=== PATIENT | male | born 1945 | race Caucasian/White ===

== ENCOUNTER 2022-07-12 06:51 | Day surgery (SDC) | payer MEDICARE, MEDICAID ==
[~2022-07-12] VITALS: Ht 175.3 cm; Wt 98.0 kg
[~2022-07-12 06:51] MED LIST: ADV50500 IH; ALBU18HF2 IH; AMA1T PO; ASPI-1265 PO; CA C1TAB69 PO; CARV-50 PO; CYAN1TAB41 PO; FLO0.4C PO; LANTUS SQ; LOSA25TA96 PO; METF-900 PO; NORCO10T PO; OMEP-84 PO; SIMV80TA2 PO; TEST1.25 TD; TIZA4CAP6 PO; [UNRECOGNIZED DRUG - CODE] PO
[2022-07-12 07:20] VITALS: BP 162/65
[2022-07-12] MEDS ORDERED: EVOL140P3 SQ (07:36)
[2022-07-12] MEDS ORDERED: FURO40TA4 PO (07:36)
[2022-07-12] MEDS ORDERED: FINA5TAB11 PO (07:38)
[2022-07-12] MEDS ORDERED: INSU100I25 SQ (07:38)
[2022-07-12] MEDS ORDERED: TIOT18CA3 INH (07:43)
[2022-07-12] MEDS ORDERED: ADV50250 IH (07:43)
[2022-07-12] MEDS ORDERED: CLOP75TA15 PO (07:43)
[2022-07-12] MEDS ORDERED: AMIO200T62 PO (07:43)
[2022-07-12 07:56] LABS: BASOPHILS # (AUTO) 0.1 X10'3 (0-0.2); BASOPHILS % (AUTO) 0.7 % (0-1); EOSINOPHILS # (AUTO) 0.3 X10'3 (0-0.9); EOSINOPHILS % (AUTO) 3.5 % (0-6); HEMATOCRIT 36.8 % (42.0-52.0); HEMOGLOBIN 11.9 g/dl (14.0-17.9); LYMPHOCYTES # (AUTO) 1.9 X10'3 (1.1-4.8); LYMPHOCYTES % (AUTO) 22.4 % (21-51); MEAN CORPUSCULAR HGB CONC 32.3 g/dL (33.0-36.5); MEAN CORPUSCULAR VOLUME 80.3 FL (78-98); MEAN PLATELET VOLUME 9.4 FL (7.4-10.4); MONOCYTES # (AUTO) 0.6 X10'3 (0-0.9); MONOCYTES % (AUTO) 7.5 % (2-12); NEUTROPHILS # (AUTO) 5.5 X10'3 (1.8-7.7); NEUTROPHILS % (AUTO) 65.9 % (42-75); PLATELET COUNT 214 X10'3 (140-440); RED BLOOD COUNT 4.58 X10'6 (4.70-6.10); RED CELL DISTRIBUTION WIDTH 16.9 % (11.5-14.5); WHITE BLOOD COUNT 8.4 X10'3 (4.5-11.0)
[2022-07-12] MEDS ORDERED: clindamycin-Cleocin 900mg/D5W 50 ML IV ONE (07:57)
[2022-07-12] MEDS ORDERED: vancomycin 1,500 MG in NS 300ml IV soln IV ONE (07:57)
[2022-07-12 08:04] LABS: ALBUMIN 3.4 G/DL (3.4-5.0); ANION GAP 14 (8-16); BLOOD UREA NITROGEN 28 MG/DL (7-18); BUN/CREATININE RATIO 13.1 (5.4-32.0); CALCIUM 8.7 MG/DL (8.5-10.1); CHLORIDE 105 MMOL/L (99-107); CREATININE 2.13 MG/DL (0.60-1.10); GLUCOSE 125 MG/DL (70-104); MAGNESIUM 1.8 MG/DL (1.5-2.4); POTASSIUM 4.5 MMOL/L (3.5-5.1); SODIUM 143 MMOL/L (135-145); TOTAL CARBON DIOXIDE 24.4 MMOL/L (24-32); eGFR 30 ML/MIN
[2022-07-12] MEDS ORDERED: midazolam 1 mg/ML 2ml injection ONE ×3 (08:48→09:40)
[2022-07-12] MEDS ORDERED: vancomycin 1,000mg inj ONE (08:48)
[2022-07-12] MEDS ORDERED: LIDOCAINE 2% w/EPI 1:100:000 30mL injection MDV**cath lab 1 only ONE (08:48)
[2022-07-12] MEDS ORDERED: fentaNYL/PF 50MCG/1 ML 2ML syringe ONE ×2 (08:48→09:40)
[2022-07-12 10:15] VITALS: BP 127/40
--- NOTE | 2022-07-12 10:31 | NUR ---
Contacted pt's son as per pt request. Son states he will be here at 1200.
[2022-07-12 10:37] VITALS: BP 121/44
[2022-07-12 10:45] VITALS: BP 117/44
[2022-07-12 11:00] VITALS: BP 125/41
[2022-07-12] MEDS ORDERED: normal saline 1000ml 1,000 ML IV SCH (11:00)
--- NOTE | 2022-07-12 11:10 | NUR ---
Pt ate 100% of breakfast tray, 350ml oral fluid intake. Pt vs stable as charted. Pt denies cp, denies SOB.
[2022-07-12 11:32] VITALS: BP 108/41
--- NOTE | 2022-07-12 11:50 | NUR ---
Pt ambulated to bathroom, voided
== END 2022-07-12 12:00 | disposition home or self-care (01) ==
LOC: SSTAY O 06:51
PROVIDERS: ATTEND Internal Medicine Cardiovascular Disease
DX: Z45.02 Encounter for adjustment and management of automatic implantable cardiac defibrillator (principal); I25.5 Ischemic cardiomyopathy; Z79.899 Other long term (current) drug therapy; Z79.4 Long term (current) use of insulin; I25.10 Atherosclerotic heart disease of native coronary artery without angina pectoris; I10 Essential (primary) hypertension; E78.5 Hyperlipidemia, unspecified; E11.9 Type 2 diabetes mellitus without complications; J44.9 Chronic obstructive pulmonary disease, unspecified; G47.33 Obstructive sleep apnea (adult) (pediatric); I47.2 Ventricular tachycardia; I25.118 Atherosclerotic heart disease of native coronary artery with other forms of angina pectoris; I35.0 Nonrheumatic aortic (valve) stenosis; Z95.5 Presence of coronary angioplasty implant and graft; I73.9 Peripheral vascular disease, unspecified; C64.2 Malignant neoplasm of left kidney, except renal pelvis; Z79.82 Long term (current) use of aspirin; K21.9 Gastro-esophageal reflux disease without esophagitis; D64.9 Anemia, unspecified; E66.9 Obesity, unspecified; Z98.890 Other specified postprocedural states; Z96.651 Presence of right artificial knee joint; Z82.49 Family history of ischemic heart disease and other diseases of the circulatory system; Z88.0 Allergy status to penicillin; Z88.8 Allergy status to other drugs, medicaments and biological substances; Z90.5 Acquired absence of kidney
CPT/HCPCS: 33262; 36415; 80048; 82948; 83735; 85025; 85610; 93005; 99152; 99153; C1722; J2250; J3010; J3370; J3490; J7030; J7040; A4620; A6258

== ENCOUNTER 2025-02-08 05:59 | Day surgery (SDC) | payer MEDICARE, MEDICAID ==
[~2025-02-08] VITALS: Ht 175.3 cm; Wt 82.5 kg
[~2025-02-08 05:59] MED LIST changes: +ADV50250 IH; -ADV50500 IH; -AMA1T PO; +AMIO200T72 PO; -ASPI-1265 PO; -CA C1TAB69 PO; -CARV-50 PO; +CLOP75TA15 PO; -CYAN1TAB41 PO; +EVOL140P3 SQ; +FINA5TAB11 PO; +FURO40TA4 PO; +INSU100I27 SQ; -LANTUS SQ; -LOSA25TA96 PO; -METF-900 PO; -OMEP-84 PO; -SIMV80TA2 PO; -TEST1.25 TD; +TIOT18CA3 INH; -TIZA4CAP6 PO; -[UNRECOGNIZED DRUG - CODE] PO
[2025-02-08 06:30] VITALS: BP 128/39; PULSE 63; RESP 15; TEMP 97.6; O2SAT 95
[2025-02-08] MEDS ORDERED: ROPI1TAB47 PO (06:58)
[2025-02-08] MEDS ORDERED: SOTA80TA73 PO (06:58)
[2025-02-08] MEDS ORDERED: ONDA-103 PO (06:58)
[2025-02-08] MEDS ORDERED: APIX2.5T PO (06:58)
[2025-02-08] MEDS ORDERED: MIDO5TAB4 PO (06:58)
[2025-02-08] MEDS ORDERED: OXYC5TAB2 PO (06:58)
[2025-02-08] MEDS ORDERED: FLUT16SP26 BOTHNARES (06:58)
[2025-02-08 08:47] VITALS: BP_SYST 139; BP_DIAS 42; BP_DIAS 78; PULSE 58; RESP 15; TEMP 97.6; O2SAT 99
[2025-02-08 09:00] VITALS: BP 139/47; PULSE 62; RESP 17; O2SAT 99
[2025-02-08 09:06] VITALS: BP 156/57; PULSE 64; RESP 14; O2SAT 98
[2025-02-08 09:36] VITALS: BP 152/49; PULSE 60; RESP 15; O2SAT 97
[2025-02-08 10:06] VITALS: BP 150/49; PULSE 59; RESP 17; O2SAT 98
== END 2025-02-08 10:30 | disposition home or self-care (01) ==
LOC: SSTAY O 05:59
PROVIDERS: ATTEND Family Medicine
DX: E04.1 Nontoxic single thyroid nodule (principal)
CPT/HCPCS: 10005; 88173